=== PATIENT | female | born 1960 | race Caucasian/White ===

== ENCOUNTER 2019-04-15 00:36 | Observation (INO) ==
[2019-04-15] MEDS ORDERED: 0.9 % Sodium Chloride 1,000 ML IVC ONE (00:56)
[2019-04-15] MEDS ORDERED: Ondansetron 4 MG/2 ML VIAL IVP ONE (00:56)
[2019-04-15] MEDS ORDERED: Aspirin Enteric Coated 325 MG Tablet PO SCH (01:00)
[2019-04-15 01:07] LABS: Basophils % 0.4 %; Eosinophils # 0.2 K/mcL (0.0-0.6); Eosinophils % 2.6 %; Hematocrit 38.3 % (35.3-44.9); Hemoglobin 13.1 g/dL (11.5-15.4); Immature Granulocytes % 0.2 % (0-4); Lymphocytes # 1.9 K/mcL (0.6-4.6); Lymphocytes % 21.1 %; Mean Corpuscular HGB Conc 34.2 g/dL (31.6-35.5); Mean Corpuscular Hemoglobin 30.9 pg (28.0-33.3); Mean Corpuscular Volume 90.3 fL (83.0-100.0); Mean Platelet Volume 10.3 fL (9.4-12.4); Monocytes # 0.7 K/mcL (0.0-1.3); Monocytes % 7.3 %; Neutrophils # 6.1 K/mcL (1.6-8.9); Platelet Count 214 K/mcL (140-400); Red Blood Count 4.24 M/mcL (3.82-4.97); Red Cell Distribution Width 11.9 % (11.5-14.5); Segmented Neutrophils % 68.4 %; White Blood Count 8.9 K/mcL (4.3-11.1)
--- NOTE | 2019-04-15 01:16 | Emergency Department Note ---
Disposition Clinical Impression: Chest pain Qualifiers: Chest pain type: unspecified Qualified Code(s): R07.9 - Chest pain, unspecified Vomiting Qualifiers: Vomiting type: unspecified Vomiting Intractability: non-intractable Nausea presence: with nausea Qualified Code(s): R11.2 - Nausea with vomiting, unspecified Disposition: Admitted As Inpatient Time of Disposition: 02:17 General Adult HPI - General Chief complaint: ED Chest Pain Stated complaint: "Weak, N/V" Time Seen by Provider: 04/15/19 00:50 Source: patient Mode of arrival: ambulatory Limitations: no limitations Nursing Notes Reviewed: Yes Vital Signs Reviewed: Yes - History of Present Illness HPI Narrative: 58 yo female with PMHx of DM presents to the ED with one day of generalized not feeling well. Patient states that she feels weak and has vomited at least 6 times since 6 PM. She denies fever but has had chills. She denies chest pain, shortness of breath, abdominal pain. The weakness is nonfocal she just feels overall fatigued. She had an episode that was similar to this many months ago but it went away on its own after she took an aspirin. Pain Scale: 6 - Related Data Home Medications Medication Instructions Recorded Confirmed Venlafaxine XR (24 HR) [Effexor Xr] 300 mg PO DAILY 02/10/17 04/15/19 clonazePAM [Klonopin] 1 mg PO TID 07/27/17 04/15/19 Previous Rx's Medication Instructions Recorded buPROPion HCl [Bupropion HCl Sr] 200 mg PO BID #60 tablet.er 07/12/16 Allergies Allergy/AdvReac Type Severity Reaction Status Date / Time ciprofloxacin [From Cipro] Allergy Swelling Verified 04/15/19 00:49 of Lip/Tongue/Throat hydromorphone [From Dilaudid] Allergy anxious Verified 04/15/19 00:52 and pain in chest Sulfa (Sulfonamide Allergy Swelling Verified 04/15/19 00:49 Antibiotics) of Lip/Tongue/Throat tramadol Allergy Swelling Verified 04/15/19 00:49 of Lip/Tongue/Throat Cyclobenzaprine AdvReac Nausea Verified 04/15/19 00:49 [From Flexeril] All systems ED: reviewed and negative except as stated. Review of Systems: As Per HPI Constitutional: Reports: chills, weakness. Denies: fever Cardiovascular: Reports: dyspnea on exertion. Denies: chest pain, palpitations, orthopnea, edema Respiratory: Denies: cough, dyspnea, wheezes Gastrointestinal: Reports: nausea, vomiting. Denies: abdominal pain, diarrhea Genitourinary: Denies: dysuria, hematuria Musculoskeletal: Denies: back pain, neck pain Integumentary: Denies: rash Neurological: Denies: headache Endocrine: Reports: fatigue Past Medical History - Past Medical History Attestation: Yes The following information was validated with the patient. 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 Absent: tenderness, lymphadenopathy - Chest Chest inspection: Present: normal inspection. Absent: tenderness, rash - Respiratory Respiratory exam: Present: normal lung sounds bilaterally. Absent: wheezes - Cardiovascular Cardiovascular exam: Present: regular rate, normal rhythm - Abdominal Exam Abdominal exam: Present: soft, tenderness. Absent: distention, guarding, rebound, rigidity Abdominal tenderness: Present: epigastrium, mild - Extremities Exam Extremities exam: Present: normal inspection. Absent: tenderness, pedal edema - Neurological Exam Neurological exam: Present: alert, oriented X3 - Psychiatric Psychiatric exam: Present: normal affect, normal mood - Skin Skin exam: Present: warm, dry, intact Course Vital Signs Temperature 98.1 F 04/15/19 00:44 Pulse Rate 99 04/15/19 00:44 Respiratory Rate 16 04/15/19 00:44 Blood Pressure 127/86 04/15/19 00:44 O2 Sat by Pulse Oximetry 96 04/15/19 00:44 Temperature 98.1 F 04/15/19 00:44 Pulse Rate 88 04/15/19 02:06 Respiratory Rate 15 04/15/19 02:06 Blood Pressure 109/77 04/15/19 02:06 O2 Sat by Pulse Oximetry 97 04/15/19 02:06 Oxygen Delivery Oxygen Delivery Room Air Medical Decision Making - MDM Narrative Medical decision making narrative: Patient presents with 7 hours of weakness and nausea with vomiting. She does have cardiac risk factors including her age and diabetes, therefore we will do a cardiac workup on this patient had an lipase and liver function panel. Patient will be given IV Zofran, and aspirin and a liter of normal fluids in addition to this or not to treat her symptoms. 0145 - patient's lab work and EKG are unremarkable. As she has significant family history of heart attacks at a young age, and she is concerned for cardiac etiology, we will admit the patient for further cardiac workup. Patient is agreeable with this plan of care. 0215 - Pt has been accepted by the hospitalist at this time Dr. Mcgovern EKG interpretation. - Normal sinus rhythm, no acute injury pattern, intervals unremarkable - Medical Records Medical records reviewed: Yes I reviewed the patient's medical records. - Lab Data Lab results reviewed: Yes I reviewed the patient's lab results. Result diagrams: 04/15/19 00:57 04/15/19 00:57 Lab Results 04/15/19 04/15/19 Range/Units 00:57 00:57 WBC 8.9 (4.3-11.1) K/mcL RBC 4.24 (3.82-4.97) M/mcL Hgb 13.1 (11.5-15.4) g/dL Hct 38.3 (35.3-44.9) % MCV 90.3 (83.0-100.0) fL MCH 30.9 (28.0-33.3) pg MCHC 34.2 (31.6-35.5) g/dL RDW 11.9 (11.5-14.5) % Plt Count 214 (140-400) K/mcL MPV 10.3 (9.4-12.4) fL Immature Gran % 0.2 (0-4) % Seg Neutrophils % 68.4 % Lymphocytes % 21.1 % Monocytes % 7.3 % Eosinophils % 2.6 % Basophils % 0.4 % Neutrophils # 6.1 (1.6-8.9) K/mcL Lymphocytes # 1.9 (0.6-4.6) K/mcL Monocytes # 0.7 (0.0-1.3) K/mcL Eosinophils # 0.2 (0.0-0.6) K/mcL Basophils # 0.0 (0.0-0.2) K/mcL Sodium 136 (136-145) mEq/L Potassium 3.9 (3.5-5.1) mEq/L Chloride 104 (98-107) mEq/L Carbon Dioxide 21 L (23-29) mEq/L BUN 21 H (6-20) mg/dL Creatinine 1.13 (0.60-1.20) mg/dL Est GFR ( Amer) > 60 (> 60) Est GFR (Non-Af Amer) 50 L (> 60) BUN/Creatinine Ratio 19 (6-26) Glucose 86 (70-105) mg/dL Calculated Osmolality 284 (280-300) Calcium 9.5 (8.6-10.3) mg/dL Magnesium 2.0 (1.6-2.6) mg/dL Total Bilirubin 0.4 (0.3-1.0) mg/dL AST 16 (13-39) Units/L ALT 21 (7-52) Units/L Alkaline Phosphatase 95 (34-104) Units/L Troponin I < 0.03 (< 0.04) ng/mL Serum Total Protein 7.1 (6.4-8.9) g/dL Albumin 4.6 (3.5-5.7) g/dL Globulin 2.5 (2.4-3.5) g/dL Albumin/Globulin Ratio 1.8 (1.1-2.2) Lipase 29 (11-82) Units/L TSH 1.166 (0.340-5.600) mcIU/mL - Radiology Data Radiology results reviewed: Yes I reviewed the patient's radiology results. - EKG Data EKG #1 EKG attestation: Yes I reviewed and interpreted this EKG. EKG results narrative: EKG obtained at 00:46 on 04/15/2019 Heart rate 92 bpm, CT interval 153, QRS duration 80, QT 356, QTC 441 Sinus rhythm without any ST segment elevations or depressions. No acute T-wave abnormalities. No significant changes when compared to previous EKG dated 03/01/2016. Attestation Statement - Attestation Attestation: Dr. Mcgovern note: Patient seen in conjunction with emergency medicine resident Dr. Kenna Ibrahim. Please see her charting for complete documentation. Spent [id number] time with the patient and agree with patient's treatment and disposition. Vague weakness and epigastric and chest pain with mild diaphoresis and vomiting onset at rest for 5 hours ago at home. No such symptoms prior. Pain-free on arrival. The patient and history in the family no prior testing for coronary disease. Initial troponin EKG unremarkable Heart Score - Score History: Moderately Suspicious EKG: Non Specific repolarisation Disturbance Age: 45-65 Risk Factors: 1-2 risk factors Troponin: Less than normal limit HEART Score Total: 4
[2019-04-15 01:29] LABS: Alanine Aminotransferase 21 Units/L (7-52); Albumin 4.6 g/dL (3.5-5.7); Albumin/Globulin Ratio 1.8 (1.1-2.2); Alkaline Phosphatase 95 Units/L (34-104); Aspartate Amino Transferase 16 Units/L (13-39); BUN/Creatinine Ratio 19 (6-26); Bilirubin,Total 0.4 mg/dL (0.3-1.0); Blood Urea Nitrogen 21 mg/dL (6-20); Calcium 9.5 mg/dL (8.6-10.3); Carbon Dioxide 21 mEq/L (23-29); Chloride 104 mEq/L (98-107); Globulin 2.5 g/dL (2.4-3.5); Glucose 86 mg/dL (70-105); Lipase 29 Units/L (11-82); Osmolality,Calculated 284 (280-300); Potassium 3.9 mEq/L (3.5-5.1); Sodium 136 mEq/L (136-145); Total Protein 7.1 g/dL (6.4-8.9); Troponin I < 0.03 ng/mL (< 0.04); eGFR For African Americans > 60 (> 60); eGFR For Non-African Americans 50 (> 60)
[2019-04-15 01:43] LABS: Thyroid Stimulating Hormone 1.166 mcIU/mL (0.340-5.600)
[2019-04-15] MEDS ORDERED: Aspirin Enteric Coated 325 MG Tablet PO ONE (01:45)
[2019-04-15] MEDS ORDERED: Nitroglycerin 0.4 MG TAB.SUBL SL PRN (02:15)
[2019-04-15] MEDS ORDERED: Naloxone 0.4 MG/ML INJ IVP PRN (04:19)
--- NOTE | 2019-04-15 04:47 | Internal Med History&Physical ---
Date of Encounter: 04/15/19 Time of Encounter: 03:30 Internal Medicine - H&P: HPI Chief complaint: Chest Pain Admitted From: Home Plans for Post Hospital Care: Home History of present illness: Ms. Milton is a 58 year old female with past medical history significant for hyperlipidemia, heart palpitations, asthma, gerd, erosive gastropathy, kidney disease, prediabetes, anxiety, and depression who presents for complaints of substernal chest pressure that radiated into her back. Initially woke up yesterday feeling very fatigued then later developed the chest pressure. Pain was rated at 8/10 when at its worst and was associated with shortness of breath, nausea, vomiting, and diaphoresis. States she had a similar episode around 2-3 months ago that resolved around 5-6 hours later after taking aspirin at home. Since that time has had similar symptoms intermittently but not as severe. ER reported EKG as sinus rhythm without any ST segment elevations or depressions, no acute T wave abnormalities, and no significant changes when compared to previous on 03/01/2016. ER also obtained chest xray which showed no acute cardiopulmonary abnormality. She received aspirin, nitroglycerin, zofran, and fluids while in the ER which has completely resolved her symptoms. She currently denies any headache, chest pain, shortness of breath, abdominal pain, nausea, bowel or bladder changes. In 2016 had an echocardiogram completed showing a 55% EF and a stress test which was negative for ischemia or infarct. Reports having to stop her stress test early due to an asthma attack. Reports history of gastric pain in 2016 she initially thought was cardiac related, but was found to be related to erosive gastropathy found on EGD. She reports the pain she experienced at that time feels different than what she has been experiencing over the past 2-3 months and did not cause the same associated symptoms. Also reports history of heart palpitations for which she formerly followed with cardiology every 6 months but reports she has not followed with them for around 2 years. Also reports formerly following regularly with PCP but states it has been almost a year since her last visit. Past Med Surg Social Fam HX - Past Medical History Medical history: asthma, GERD, hyperlipidemia, renal disease Additional medical history: Prediabetes, heart palpitations Psychiatric history: anxiety, depression, prior suicide attempt - Past Surgical History Surgical History: appendectomy, orthopedic, other Additional surgical history: neck surgery, l thumb. breast implants. carpal tunnel - Social History Smoking Status: Never smoker Smokeless Tobacco Status: No Alcohol use: none Drug use: none - Family History Father Living Status: Age at : 68 Cause of : [place] Hx Family Cardiac Disorders: Yes (GA) Sister Hx Family Cardiac Disorders: Yes ([place], stents) Mother Hx Family Cardiac Disorders: Yes (stent) Internal Medicine - H&P: Meds buPROPion HCl [Bupropion HCl Sr] 200 mg PO BID #60 tablet.er 07/12/16 [Rx] Venlafaxine XR (24 HR) [Effexor Xr] 300 mg PO DAILY 02/10/17 [History] clonazePAM [Klonopin] 1 mg PO TID 07/27/17 [History] Allergy/AdvReac Type Severity Reaction Status Date / Time ciprofloxacin [From Cipro] Allergy Swelling Verified 04/15/19 00:49 of Lip/Tongue/Throat hydromorphone [From Dilaudid] Allergy anxious Verified 04/15/19 00:52 and pain in chest Sulfa (Sulfonamide Allergy Swelling Verified 04/15/19 00:49 Antibiotics) of Lip/Tongue/Throat tramadol Allergy Swelling Verified 04/15/19 00:49 of Lip/Tongue/Throat Cyclobenzaprine AdvReac Nausea Verified 04/15/19 00:49 [From Flexeril] All Systems PM: A 10-system review of systems was performed and is negative for pertinent findings except as documented above in the HPI. - Constitutional Vitals: Temp Pulse Resp BP Pulse Ox 98.1 F 78 16 123/73 99 04/15/19 03:21 04/15/19 03:21 04/15/19 03:21 04/15/19 03:21 04/15/19 03:21 Exam: General: Alert and oriented. Skin:Normal color, no rash, no lesions. HEENT:Pupils equal, round and reactive. Cardiovascular:Normal S1 & S2, no rubs, murmurs or gallops. No JVD. Pulse regular. Lungs:Normal breath sounds, no wheezes or crackles. Abdomen:Soft, non-tender, no rigidity. Hyperactive bowel sounds. Extremities:No deformity, no edema or tenderness, no joint swelling or clubbing. Neurological:Normal cognition and motor skills. Pulses:Carotid and radial pulses normal +2. Rest of the physical exam is non contributory. Internal Med - H&P Results - Labs CBC & Chem 7: 04/15/19 00:57 04/15/19 00:57 Labs: Short CBC 04/15/19 Range/Units 00:57 WBC 8.9 (4.3-11.1) K/mcL Hgb 13.1 (11.5-15.4) g/dL Hct 38.3 (35.3-44.9) % Plt Count 214 (140-400) K/mcL Neutrophils # 6.1 (1.6-8.9) K/mcL BMP 04/15/19 00:57 Sodium 136 Potassium 3.9 Chloride 104 Carbon Dioxide 21 L BUN 21 H Creatinine 1.13 Glucose 86 Calcium 9.5 Cardiac Enzymes 04/15/19 Range/Units 00:57 Troponin I < 0.03 (< 0.04) ng/mL Liver Function 04/15/19 Range/Units 00:57 Total Bilirubin 0.4 (0.3-1.0) mg/dL AST 16 (13-39) Units/L ALT 21 (7-52) Units/L Alkaline Phosphatase 95 (34-104) Units/L Albumin 4.6 (3.5-5.7) g/dL - Impressions ITS Impressions Chest X-Ray 04/15/19 00:56 IMPRESSION: No acute cardiopulmonary abnormality. D/ / Antonio Schaeffer MD / Antonio Schaeffer MD Interpreting Provider: Antonio Schaeffer MD - Assessment and Plan (1) Chest pain Current Visit: Yes Status: Acute Assessment and plan: Pain and associated symptoms completely resolved with aspirin, nitroglycerin, and zofran while in ER Continuous cardiac monitoring. Initial troponin in ER negative, serial troponins ordered. Echocardiogram ordered. Consider cardiac stress test depending on above findings. Qualifiers: Chest pain type: unspecified Qualified Code(s): R07.9 - Chest pain, unspecified (2) Nausea Current Visit: Yes Status: Chronic Assessment and plan: Currently resolved. Zofran ordered as needed. (3) Kidney disease Current Visit: Yes Status: Chronic Assessment and plan: Appears to be at baseline based on comparison of previous labs. Currently BUN 21, GFR 50, creatinine within normal limits. Repeat labs ordered to monitor. (4) Anxiety and depression Current Visit: Yes Status: Chronic Assessment and plan: Continue home medications once verified. (5) DVT prophylaxis Current Visit: Yes Status: Acute Assessment and plan: Subcutaneous heparin. - Time Spent With Patient Total time spent is greater than 50% in coordination of care (as documented) at patient's floor/unit and/or counseling patient:
[2019-04-15] MEDS ORDERED: *HR* Heparin 5,000 UNIT/ML VIAL SQ SCH (06:00)
[2019-04-15 08:05] VITALS: BP 103/64
[2019-04-15] MEDS ORDERED: Acetaminophen 325 MG TABLET PO PRN (09:25)
[2019-04-15] MEDS ORDERED: Ondansetron 4 MG/2 ML VIAL IVP PRN (09:30)
[2019-04-15] MEDS ORDERED: Regadenoson 0.4 MG/5 ML SYRINGE IVP ONE ×2 (11:10→11:30)
--- NOTE | 2019-04-15 14:53 | Discharge Summary ---
- NOTES TO OUTPATIENT PROVIDER Notes to Outpatient Provider: f/u with PCP in one week. f/u with GI in 2-4 weeks. Orders not resulted at time of discharge: Pending orders 04/15/19 00:56 ECG 12 lead ECG [ECG] Stat 04/15/19 09:06 NM pillo perf SPECT multi [NM] Routine 04/16/19 04:00 Basic Metabolic Panel AM 0400 Complete Blood Count [HEME] AM 0400 Date of Encounter: 04/15/19 Time of Encounter: 14:47 - Discharge Diagnosis (1) Chest pain Priority: Primary Status: Acute Qualifiers: Chest pain type: unspecified Qualified Code(s): R07.9 - Chest pain, unspecified (2) GERD (gastroesophageal reflux disease) Priority: Primary Status: Acute Qualifiers: Esophagitis presence: esophagitis presence not specified Qualified Code(s): K21.9 - Gastro-esophageal reflux disease without esophagitis (3) Nausea Priority: Primary Status: Chronic (4) Anxiety and depression Priority: Secondary Status: Chronic (5) DVT prophylaxis Priority: Secondary Status: Acute (6) Kidney disease Priority: Secondary Status: Chronic Hospital course: Ms. Milton is a 58 year old female with past medical history significant for hyperlipidemia, heart palpitations, asthma, GERD, erosive gastropathy, CKD-2, pre diabetes, anxiety, and depression pt presented to with sub sternal and epigastric pressure from last a couple of days. She has been having epigastric discomfort from last 2 to 3 months. She used to have that before a couple of years ago, which resolved with PPI therapy. 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 Her serial troponin came back as negative. Her EKG did not show any acute ischemic changes. She did go for nuclear stress test which came back as negative for ischemia/infarction. Her CP / epigastric discomfort seems to be most likely due to GERD. So recommend to start taking Prilosec 20mg PO BID and f/u with GI as an out pt if symptoms persist. - Time Spent with Patient Total time spent providing and/or coordinating discharge services: Time spent: D/C greater than 8 hours after Admission (I provided [id number] service to this patient more than 8 hrs apart since pt got admitted in the hospital by my colleague.) - Discharge Medications Prescriptions: New Omeprazole [PriLOSEC] 20 mg PO BIDAC #60 cap Continued buPROPion HCl [Bupropion HCl Sr] 200 mg PO BID #60 tablet.er Venlafaxine XR (24 HR) [Effexor Xr] 300 mg PO DAILY clonazePAM [Klonopin] 1 mg PO TID Home Medications: buPROPion HCl [Bupropion HCl Sr] 200 mg PO BID #60 tablet.er 07/12/16 [Rx] Venlafaxine XR (24 HR) [Effexor Xr] 300 mg PO DAILY 02/10/17 [History] clonazePAM [Klonopin] 1 mg PO TID 07/27/17 [History] Omeprazole [PriLOSEC] 20 mg PO BIDAC #60 cap 04/15/19 [Rx] Allergies/Adverse Reactions: 3 Allergy/AdvReac Type Severity Reaction Status Date / Time ciprofloxacin [From Cipro] Allergy Swelling Verified 04/15/19 00:49 of Lip/Tongue/Throat hydromorphone [From Dilaudid] Allergy anxious Verified 04/15/19 00:52 and pain in chest Sulfa (Sulfonamide Allergy Swelling Verified 04/15/19 00:49 Antibiotics) of Lip/Tongue/Throat tramadol Allergy Swelling Verified 04/15/19 00:49 of Lip/Tongue/Throat Cyclobenzaprine AdvReac Nausea Verified 04/15/19 00:49 [From Flexeril] Date of admission: 04/15/19 02:23 Primary care physician: PCP NONE - Constitutional Vitals: Temp Pulse Resp BP Pulse Ox 98.8 F 88 14 103/64 95 04/15/19 08:02 04/15/19 08:02 04/15/19 08:02 04/15/19 08:02 04/15/19 08:02 General appearance: Present: A&O X 3, no acute distress, answers questions appropriately Exam: Gen: Alert, awake, Oriented to time,place and person Chest: Diminished breath sounds B/L, No wheezing, No crackles, No rales Heart: S1S2+ RRR No murmurs Abd: Soft, NT, BS +, No organomegaly Ext: No edema, pulses are palpable, No calf tenderness Neuro : No acute focal neuro deficits noticed Skin: No rash. - Patient Status Disposition: Home, Self-Care Condition: Good Overall status at discharge: patient is back to baseline - Discharge Instructions Instructions: Diet for Ulcers and Gastritis (GEN), Gastroesophageal Reflux Disease (DC) Follow Up With: Jean Mcknight DO [Partnered Physician] - 04/23/19 10:00 am - Diet and Activity Activity: increase activity as tolerated Diet: low salt diet
--- NOTE | 2019-04-16 13:38 | Electrocardiograph Report ---
[employer] Test Date: 2019-04-15 Pat Name: Halima Milton Department: EXAM4 Room: 66 Gender: F [place] Hand: : 1960 Requested By: Kenna Ibrahim Order Number: [id number] Reading MD: Eleazar Reese Measurements Intervals [place] Rate: 92 P: 48 ME: 153 QRS: 52 QRSD: 80 T: 57 QT: 356 QTc: 441 Interpretive Statements Sinus rhythm Baseline wander in lead(s) V2 Electronically Signed On 04-16-2019 13:36:48 EDT by Eleazar Reese
== END 2019-04-15 17:45 | disposition home or self-care (01) ==
LOC: EMEROOARM 00:36 → 3BNU 00:36
PROVIDERS: ADMIT Pediatrics; ATTEND Pediatrics